=== PATIENT | male | born 1950 | race Caucasian/White ===

== ENCOUNTER → 2017-03-16 | Outpatient (CLI) | payer MEDICARE | END | disposition home or self-care (01) | LOC: PCVCCLINIC 13:35 | PROVIDERS: ATTEND Internal Medicine Cardiovascular Disease | DX: I48.0 Paroxysmal atrial fibrillation (principal); I10 Essential (primary) hypertension; E78.00 Pure hypercholesterolemia, unspecified; G47.33 Obstructive sleep apnea (adult) (pediatric); Z95.0 Presence of cardiac pacemaker; Z86.19 Personal history of other infectious and parasitic diseases; Z82.49 Family history of ischemic heart disease and other diseases of the circulatory system; Z87.891 Personal history of nicotine dependence; Z79.899 Other long term (current) drug therapy | CPT/HCPCS: 80061; 93005; G0463 ==

== ENCOUNTER → 2017-06-22 | Outpatient (CLI) | payer MEDICARE | END | disposition home or self-care (01) | LOC: PCVCCLINIC 14:00 | DX: J44.9 Chronic obstructive pulmonary disease, unspecified (principal); I10 Essential (primary) hypertension; E78.00 Pure hypercholesterolemia, unspecified; E11.9 Type 2 diabetes mellitus without complications; I48.91 Unspecified atrial fibrillation; G47.33 Obstructive sleep apnea (adult) (pediatric); Z95.0 Presence of cardiac pacemaker; Z87.891 Personal history of nicotine dependence; Z79.899 Other long term (current) drug therapy | CPT/HCPCS: 93280; G0463 ==

== ENCOUNTER → 2018-01-02 | Outpatient (CLI) | payer MEDICARE ==
--- NOTE | 2018-01-02 13:50 | PCVCIMAG ---
APPROVED REPORT Study performed: 01/02/2018 12:52:25 EXAM: Comprehensive 2D, Doppler, and color-flow Echocardiogram Patient Location: Echo lab Status: routine BSA: 2.22 HR: 68 bpmBP: 130/88 mmHg Rhythm: NSR Other Information Study Quality: Technically Limited Indications Diabetes Atrial Fibrillation Hypertension/HDD COPD, Hyperlipidemia. DEMETRIO 2D Dimensions IVSd: 18.44 (7-11mm)LVOT Diam: 21.19 (18-24mm) LVDd: 34.90 mm PWd: 15.84 (7-11mm)Ascending Ao: 39.38 (22-36mm) LVDs: 28.05 (25-40mm) Left Atrium: 40.47 (27-40mm) Aortic Root: 34.11 mm LV Single Plane 4CH: 54.97 % Volumes Left Atrial Volume (Systole) Single Plane 4CH: 53.14 mLSingle Plane 2CH: 48.34 mL LA ESV Index: 25.00 mL/m2 Aortic Valve AoV Peak Dylan.: 1.82 m/s AO Peak Gr.: 13.23 mmHg Mitral Valve E/A Ratio: 1.1 MV Decel. Time: 256.88 ms MV E Max Dylan.: 1.25 m/s MV A Dylan.: 1.16 m/s TDI E/Lateral E': 125.00E/Medial E': 11.36 Medial E' Dylan.: 0.11 m/s Lateral E' Dylan.: 0.01 m/s Pulmonary Valve PV Peak Gr.: 8.66 mmHg Tricuspid Valve TR Peak Dylan.: 2.94 m/s TR Peak Gr.: 34.46 mmHg Left Ventricle The left ventricle is normal size. There is normal LV segmental wall motion. Mild concentric left ventricular hypertrophy. Left ventricular systolic function is normal. The left ventricular ejection fraction is within the normal range. LVEF is 55-60%. The left ventricular diastolic function is normal. Right Ventricle The right ventricle is normal size. The right ventricular systolic function is normal. Pacemaker lead is present in the right ventricle. Atria The left atrium size is normal. Pacemaker lead is present in the right atrium. Aortic Valve The aortic valve is normal in structure. No aortic regurgitation is present. There is no aortic valvular stenosis. Mitral Valve There is mitral annular calcification. There is no mitral valve regurgitation noted. No evidence of mitral valve stenosis. Tricuspid Valve The tricuspid valve is normal in structure. Trace tricuspid regurgitation. Pulmonary artery pressure is 45mmHg. Pulmonic Valve The pulmonary valve is normal in structure. There is no pulmonic valvular regurgitation. Great Vessels The aortic root is normal in size. IVC is dilated and collapses <50% with inspiration. Pericardium There is no pericardial effusion. <Conclusion> The left ventricle is normal size. Mild concentric left ventricular hypertrophy. LVEF is 55-60%. The left ventricular diastolic function is normal. The right ventricle is normal size. The left atrium size is normal. Pacemaker lead is present in the right atrium. Pacemaker lead is present in the right ventricle. The aortic valve is normal in structure. There is mitral annular calcification. There is no mitral valve regurgitation noted. Trace tricuspid regurgitation. Pulmonary artery pressure is 45mmHg. The aortic root is normal in size. There is no pericardial effusion.
== END | disposition home or self-care (01) ==
LOC: PCVCIMAG 13:08
PROVIDERS: ATTEND Internal Medicine Cardiovascular Disease
DX: I48.0 Paroxysmal atrial fibrillation (principal); J44.9 Chronic obstructive pulmonary disease, unspecified; I49.5 Sick sinus syndrome; G47.33 Obstructive sleep apnea (adult) (pediatric); I10 Essential (primary) hypertension; E78.00 Pure hypercholesterolemia, unspecified; E11.9 Type 2 diabetes mellitus without complications; I48.91 Unspecified atrial fibrillation; J98.6 Disorders of diaphragm; Z95.0 Presence of cardiac pacemaker; Z87.891 Personal history of nicotine dependence; Z79.899 Other long term (current) drug therapy
CPT/HCPCS: 80061; 93005; 93280; 93306; G0463

== ENCOUNTER → 2018-07-31 | Outpatient (CLI) | payer MEDICARE | END | disposition home or self-care (01) | LOC: PCVCCLINIC 15:26 | PROVIDERS: ATTEND Internal Medicine Cardiovascular Disease | DX: I11.0 Hypertensive heart disease with heart failure (principal); I50.32 Chronic diastolic (congestive) heart failure; J44.9 Chronic obstructive pulmonary disease, unspecified; G58.8 Other specified mononeuropathies; I48.0 Paroxysmal atrial fibrillation; E78.00 Pure hypercholesterolemia, unspecified; E11.9 Type 2 diabetes mellitus without complications; G47.33 Obstructive sleep apnea (adult) (pediatric); E78.5 Hyperlipidemia, unspecified; Z95.0 Presence of cardiac pacemaker; Z88.8 Allergy status to other drugs, medicaments and biological substances; Z87.891 Personal history of nicotine dependence | CPT/HCPCS: 36415; 80061; 93280; G0463 ==

== ENCOUNTER → 2019-03-12 | Outpatient (CLI) | payer MEDICARE ==
--- NOTE | 2019-03-12 14:33 | PCVCIMAG ---
APPROVED REPORT Study performed: 03/12/2019 12:35:56 EXAM: Comprehensive 2D, Doppler, and color-flow Echocardiogram Patient Location: Echo lab Status: routine BSA: 2.27 HR: 78 bpmBP: 116/60 mmHg Rhythm: NSR Other Information Study Quality: Adequate Technically limited study due to lung disease. Indications Congestive Heart Failure COPD Diabetes Pacemaker parox a fib 2D Dimensions IVSd: 12.13 (7-11mm) LVDd: 42.35 mm PWd: 10.81 (7-11mm)Ascending Ao: 37.89 (22-36mm) LVDs: 30.63 (25-40mm) Left Atrium: 42.86 (27-40mm) Aortic Root: 35.18 mm LV Single Plane 4CH: 52.63 % LV Single Plane 2CH: 56.22 % Biplane EF: 54.0 % Volumes Left Atrial Volume (Systole) Single Plane 4CH: 68.91 mLSingle Plane 2CH: 74.97 mL LA ESV Index: 32.00 mL/m2 Aortic Valve AoV Peak Dylan.: 1.94 m/s AO Peak Gr.: 15.13 mmHgLVOT Max P.07 mmHg LVOT Max V: 1.55 m/s Mitral Valve E/A Ratio: 1.3 MV Decel. Time: 265.98 ms MV E Max Dylan.: 1.17 m/s MV A Dylan.: 0.92 m/s IVRT: 65.74 ms Pulmonary Valve PV Peak Dylan.: 1.39 m/sPV Peak Gr.: 7.69 mmHg Pulmonary Vein P Vein S: 0.48 m/sP Vein A: 0.34 m/s P Vein D: 0.64 m/sP Vein A Dur.: 148.8 msec P Vein S/D Ratio: 0.75 Tricuspid Valve TR Peak Dylan.: 2.65 m/s TR Peak Gr.: 28.01 mmHg TV Vmax: 0.43 m/s Left Ventricle The left ventricle is normal size. There is normal LV segmental wall motion. Borderline concentric left ventricular hypertrophy. Left ventricular systolic function is normal. The left ventricular ejection fraction is within the normal range. LVEF is 55%. Grade II - pseudonormal filling dynamics. Right Ventricle The right ventricle is normal size. The right ventricular systolic function is normal. Pacemaker lead is present in the right ventricle. Atria Left atrium is at the upper limits of normal. The right atrium size is normal. Pacemaker lead is present in the right atrium. Aortic Valve The aortic valve is normal in structure. No aortic regurgitation is present. There is no aortic valvular stenosis. Mitral Valve Mild mitral annular calcification. There is no mitral valve regurgitation noted. No evidence of mitral valve stenosis. Tricuspid Valve The tricuspid valve is normal in structure. Mild tricuspid regurgitation with PAP of 38 mmHg. Pulmonic Valve The pulmonary valve is normal in structure. There is no pulmonic valvular regurgitation. Great Vessels The aortic root is normal in size. IVC is dilated and collapses >50% with inspiration. Pericardium There is no pericardial effusion. There is no pleural effusion. <Conclusion> The left ventricle is normal size. LVEF is 55%. Grade II - pseudonormal filling dynamics. The right ventricle is normal size. Pacemaker lead is present in the right ventricle. Left atrium is at the upper limits of normal. The right atrium size is normal. Pacemaker lead is present in the right atrium. The aortic valve is normal in structure. Mild mitral annular calcification. There is no mitral valve regurgitation noted. Mild tricuspid regurgitation with PAP of 38 mmHg. The aortic root is normal in size. There is no pericardial effusion.
== END | disposition home or self-care (01) ==
LOC: PCVCIMAG 13:04
PROVIDERS: ATTEND Internal Medicine Cardiovascular Disease
DX: I08.1 Rheumatic disorders of both mitral and tricuspid valves (principal); I11.0 Hypertensive heart disease with heart failure; I50.32 Chronic diastolic (congestive) heart failure; I48.0 Paroxysmal atrial fibrillation; I49.5 Sick sinus syndrome; G58.8 Other specified mononeuropathies; G47.33 Obstructive sleep apnea (adult) (pediatric); E11.9 Type 2 diabetes mellitus without complications; E78.00 Pure hypercholesterolemia, unspecified; J44.9 Chronic obstructive pulmonary disease, unspecified; E78.5 Hyperlipidemia, unspecified; Z95.0 Presence of cardiac pacemaker; Z87.891 Personal history of nicotine dependence; Z90.49 Acquired absence of other specified parts of digestive tract; Z79.899 Other long term (current) drug therapy
CPT/HCPCS: 36415; 80061; 93005; 93306; G0463